=== PATIENT | female | born 1935 | race Caucasian/White ===

== ENCOUNTER 2018-07-10 18:56 | Inpatient (IN) ==
[2018-07-10] MEDS ORDERED: MOTRIN ONE (19:11)
[2018-07-10] MEDS ORDERED: MOTRIN PO ONE (19:12)
[2018-07-10] MEDS ORDERED: DUONEB (A & A) INH ONE ×2 (19:45→22:15)
[2018-07-10] MEDS ORDERED: NS 1,000 ML IV ONE (19:49)
[2018-07-10] MEDS ORDERED: TYLENOL PO ONE (19:50)
[2018-07-10 19:53] LABS: INFLUENZA A POSITIVE (NEGATIVE); INFLUENZA B NEGATIVE (NEGATIVE)
--- NOTE | 2018-07-10 20:25 | Diag Imaging Result Doc PS360 ---
EXAM: CHEST-2 VIEWS HISTORY: cough, low O2 sat. TECHNIQUE: Chest two views COMPARISON: 10/18/2013 FINDINGS: The lungs are well expanded. The heart is not enlarged. The vessels are not distended. There are no infiltrates. No pleural effusions. IMPRESSION: No pneumonia. Electronically signed by Parrish Chopra 07/10/2018 8:23 PM
[2018-07-10] MEDS ORDERED: TAMIFLU PO SCH (21:00)
[2018-07-10 21:23] LABS: BASO# 0.01 X1000 (0.0-0.2); BASO% 0.2 % (0.0-0.8); EOS# 0.03 X1000 (0.0-0.7); EOS% 0.5 % (0.0-10.0); HEMATOCRIT 43.3 % (37.0-47.0); IMM GRAN# 0.01 X1000 (0.0-0.04); IMM GRAN% 0.2 % (0.0-0.5); LYMPH# 1.23 X1000 (1.2-3.4); LYMPH% 20.2 % (20.5-51.1); MCH 31.7 PG (27-31); MCHC 32.3 g/dL (33-37); MONO# 0.67 X1000 (0.11-0.59); MPV 9.8 FL (7.4-10.4); NEUT# 4.14 X1000 (1.4-6.5); NEUT% 67.9 % (42.2-75.2); PLT 182 X1000 (130-400); RBC 4.42 XMIL (4.2-5.4); RDW 12.9 % (11.5-14.5); WBC 6.09 X1000 (4.8-10.8)
[2018-07-10 21:48] LABS: AGAP 16; ALBUMIN 3.9 g/dL (3.5-5.0); ALKALINE PHOSPHATASE 58 U/L (32-104); BUN 9 mg/dL (8-22); CALCIUM 9.1 mg/dL (8.8-10.2); CHLORIDE 98 mmol/L (98-107); COSMO 274; CREATININE 0.7 mg/dL (0.5-0.9); ESTIMATED GFR > 60; GLUCOSE 117 mg/dL (70-104); GOT 21 U/L (10-30); GPT 15 U/L (10-36); LIPASE 18 U/L (13-60); MAGNESIUM 2.2 mg/dL (1.5-2.7); POTASSIUM 3.9 mmol/L (3.5-5.1); SODIUM 137 mmol/L (136-145); TCO2 24 mmol/L (25-35); TOTAL PROTEIN 7.1 g/dL (6.3-8.3)
[2018-07-10 22:09] LABS: BILIRUBIN URINE NEGATIVE (NEGATIVE); BLOOD URINE NEGATIVE (NEGATIVE); CLARITY CLEAR (CLEAR); COLOR YELLOW; GLUCOSE URINE NEGATIVE (NEGATIVE); KETONE URINE 3+(Large) mg/dL (NEGATIVE); LEUKOCYTES URINE NEGATIVE (NEGATIVE); NITRITE URINE NEGATIVE (NEGATIVE); PROTEIN URINE TRACE mg/dL (NEGATIVE); SP GRAVITY URINE 1.015; UROBILINOGEN URINE NORMAL
[2018-07-10 22:12] LABS: URINE SOURCE CATH
[2018-07-10 22:13] LABS: URINE BACTERIA NEGATIVE /HFP; URINE CAST NONE SEEN /LPF; URINE CRYSTAL NONE SEEN /HPF; URINE EPITHELIAL CELLS <10 /HPF (<10); URINE RBC <10 /HPF (<10); URINE WBC <10 /HPF (<10); URINE YEAST NONE SEEN /HPF
--- NOTE | 2018-07-10 22:15 | PROVIDER DOCUMENTATION ---
This chart was entered by Eugenia Kulkarni Scribe, acting as scribe for Dea Solares MD. HPI-General Adult - General Chief Complaint: Fever Stated Complaint: chills, cough,fever Time Seen by Provider: 07/10/18 18:40 Source: patient Allergies/Adverse Reactions: Patient Allergies Allergy/AdvReac Type Severity Reaction Status Date / Time No Known Allergies Allergy Verified 07/10/18 19:03 Home Medications: Home Medication List Medication Instructions Recorded Confirmed Last Taken Type Multivitamin with Minerals 1 each PO DAILY 10/18/13 03/04/18 10/18/13 History [Multiple Vitamin] Omeprazole [Prilosec] 20 mg PO DAILY 10/18/13 03/04/18 10/18/13 History Trazodone [Desyrel] 100 mg PO HS 03/04/18 03/04/18 Unknown History - History of Present Illness -Gen Adult Nature of Presenting Problems: pt is a 83 yr old female presenting via EMS with 1 day complaint of fever, chills, nausea, vomiting, diarrhea, body aches, fatigue, cough and nasal congestion Location of Pain/Injury: reports: generalized Pain Radiation: reports: no radiation Quality of Pain: reports: aching Severity: reports: mild Onset/Duration: reports: 24 hours ago Timing: reports: still present Context/Activities at Onset: reports: light activity Modifying Factors: improves with: other medication (zofran with relief) Associated Symptoms: reports: cough, fatigue, fever/chills, headaches, malaise, muscle aches, sinus congestion/drainage, nausea, vomiting, weakness. denies: chest pain, EENT symptoms, shortness of breath Similar Symptoms Previously?: No Recently seen or treated by another doctor?: No Review of Systems - Adult - REVIEW OF SYSTEMS - ADULT Constitutional: reports: chills, fever, fatique Eyes: denies: discharge, redness Ears, Nose, Mouth & Throat: reports: sinus problem. denies: ear pain, throat pain Cardiovascular: denies: chest pain, palpitations, syncope Respiratory: reports: cough. denies: shortness of breath, wheezing Gastrointestinal: reports: diarrhea, nausea, vomiting. denies: abdominal pain Genitourinary: reports: no symptoms reported Musculoskeletal: reports: muscle aches Integumentary: reports: no symptoms reported Neurological: denies: dizziness/vertigo, headache/migraines, syncope Psychiatric: reports: no symptoms reported Endocrine: reports: no symptoms reported Hematologic/Lymphatic: reports: no symptoms reported Allergic/Immunologic: reports: no symptoms reported All Other Systems: Reviewed and Negative Past History - Adult - PAST MEDICAL HISTORY-ADULT Review of Records: reports: Old Records Reviewed, Nursing Assessment Review, Medications Reviewed, Social history reviewed & non-contributory. Major Childhood Illnesses: reports: denies history Cardiovascular: reports: HTN, hyperlipidemia Respiratory: reports: sleep apnea Gastrointestinal: reports: GERD Obstetrical/Gynecological: reports: denies history Genitourinary: reports: denies history Musculoskeletal: reports: arthritis Neurological: reports: dementia Psychiatric: reports: depression Endocrine/Immune: reports: denies history Other Conditions: reports: denies history - PRIOR SURGERIES/PROCEDURES Surgical/Procedure History: reports: reviewed, not pertinent - IMMUNIZATION STATUS Childhood Immunizations: See Nurse Assessment Flu Vaccine: See Nurse Assessment - FAMILY HISTORY Family History: reviewed, not pertinent - SOCIAL HISTORY Living Situation: family Physical Exam-General - PHYSICAL EXAM-ADULT Initial Vital Signs Reviewed: Yes - CONSTITUTIONAL General Appearance: appears well, alert, no apparent distress - EYES Eyes: PERRL/EOMI - HEAD, EARS, NOSE, MOUTH & THROAT HENMT: normocephalic/atraumatic, moist mucous membranes, normal ENT inspection, TMs normal - NECK Neck: non-tender, full range of motion, supple - RESPIRATORY Respiratory: chest non-tender, no pleuratic chest pain, no respiratory distress , no accessory muscle use, crackles - CARDIOVASCULAR Cardiovascular: normal peripheral pulses, regular rate, rhythm, no edema, no gallop, no JVD - GASTROINTESTINAL (ABDOMEN) Abdominal Exam: normal bowel sounds, non tender, soft - MUSCULOSKELETAL Back Exam: normal inspection Extremity: normal range of motion, non-tender, normal gait, normal inspection - SKIN Integumentary: normal color, normal turgor, warm/dry - NEUROLOGIC Neurologic: grossly normal - PSYCHIATRIC Psych/Mental Status: normal mood/affect, normal thought content, normal thought process, oriented x 3 Progress - PLAN OF CARE/RESULTS Progress/Plan/Lab Results: Vital Signs - 8 hr 07/10/18 18:56 Temperature 102.8 F H Pulse Rate 90 Respiratory Rate 20 Blood Pressure 146/88 O2 Sat by Pulse Oximetry 89 L Laboratory Results - last 24 hr 07/10/18 18:47 Group A Strep Rapid NEGATIVE Orders Category Date Time Status CHEST-2 VIEWS [RAD] Stat Exams 07/10/18 19:29 Ordered AMYLASE [CHEM] Stat Lab 07/10/18 19:48 Ordered CBC WITH ELECTRONIC DIFF [HEME] Stat Lab 07/10/18 19:48 Uncollected COMPREHENSIVE METABOLIC PANEL [CHEM] Stat Lab 07/10/18 19:[address] Stat Lab 07/10/18 19:44 Ordered Flu [INFLUENZA SCREEN PL] Stat Lab 07/10/18 18:47 Received LIPASE [CHEM] Stat Lab 07/10/18 19:48 Uncollected MAGNESIUM [CHEM] Stat Lab 07/10/18 19:48 Uncollected strep [DIRECT STREP PL] Stat Lab 07/10/18 18:47 Completed Albuterol 2.5MG/Ipratrop 0.5MG [Duoneb (A & A)] Med 07/10/18 19:45 Discontinued 3 ml INH NOW ONE Ibuprofen [Motrin] Med 07/10/18 19:11 Discontinued 600 mg .ROUTE .STK-MED ONE Ibuprofen [Motrin] Med 07/10/18 19:12 Discontinued 600 mg PO NOW ONE Ns 1000 ml IV Bolus X1 Med 07/10/18 19:49 Ordered 0.9% Sodium Chloride Inj [Ns] 1,000 ml IV 999 mls/hr Aerosol Treatments Routine Oth 07/10/18 19:45 Active Aerosol Treatments Stat Oth 07/10/18 19:45 Active Result Diagrams: 07/10/18 21:05 07/10/18 21:05 - REASSESSMENT Reassessment #1 Time Reassessed: 22:14 Status: other (PATIENT DESAT DESPITE BREATHING TREAMTNET; WILL ADMIT PATIENT FOR OBSERVATION. SPOKE TO HOSPITALIST WHO HAS ACCEPTED THE PATIENT.) - XRAY 1 XRAY Study: Chest ([facility] [address], [address], [place] [address] Department of Imaging Patient: BIGG CALABRESE LOGGINSADM Date: 07/10/18MR#: [id number] : 1935DM Status: REG [facility]#: [id number] Age /Sex: 83/FRoom/Bed: Loc: P.ED Ordering Physician: Dea Solares MD Family Physician: None,PCP Reason for Procedure: cough, low O2 sat. Signed EXAM: CHEST-2 VIEWS HISTORY: cough, low O2 sat. TECHNIQUE: Chest two views COMPARISON: 10/18/2013 FINDINGS: The lungs are well expanded. The heart is not enlarged. The vessels are not distended. There are no infiltrates. No pleural effusions. IMPRESSION: No pneumonia. Electronically signed by Parrish Chopra 07/10/2018 8:23 PM 07/10/182022 Interpreting Physician: Parrish Chopra MD Dictated Date/Time: 07/10/182021 cc: Dea Solares MD; None,PCP) Departure - Departure Date of Disposition Decision: 07/10/18 Time of Disposition Decision: 22:14 DIAGNOSIS: Influenza A, Oxygen desaturation Disposition: ADMITTED INPATIENT 09 Certified Medical Emergency: Emergent Condition: Fair Referrals and Follow-Ups: None,PCP [Primary Care Provider] - - Critical Care Note This patient required my direct & personal management of CC.: No Attestation - Physician/ YOBANI Attestation Patient care was provided by Advanced Practice Provider:: No The physician spent face to face time with patient:: Yes Advanced Practice Provider documentation review:: Supervising physician onsite and consulted in the evaluation and care of this patient. The physician did have a face to face encounter with the patient. This chart was documented by the indicated scribe, (Eugenia Kulkarni, Saji) and accurately reflects the services I performed and decisions made by me, Dea Solares MD, as attested by the provider's signature.
[2018-07-10] MEDS ORDERED: TAMIFLU ONE (22:26)
[2018-07-10] MEDS: TAMIFLU PO SCH (22:30)
[2018-07-11] MEDS ORDERED: ZOFRAN IV PRN (06:25)
[2018-07-11] MEDS: ROCEPHIN 1 GM in NS 50 ML IV SCH (06:54)
[2018-07-11] MEDS: TAMIFLU PO SCH ×2 (10:32→20:35)
[2018-07-11] MEDS: DUONEB (A & A) INH PRN (18:33)
--- NOTE | 2018-07-11 18:50 | HISTORY AND PHYSICAL ---
CHIEF COMPLAINT: Nausea, vomiting, diarrhea, body aches, fever. HISTORY OF PRESENT ILLNESS: This is an 83-year-old female who presented to the emergency room complaining of 3 days of fever, chills, nausea, vomiting, diarrhea with fatigue and a nonproductive cough. She did state that Zofran helped nausea at the beginning, but over the last 24 hours, it has not helped. She denied any chest pain, palpitations. PAST MEDICAL HISTORY: Hypertension, hyperlipidemia, chronic arthritis, obstructive sleep apnea, gastroesophageal reflux disease. PAST SURGICAL HISTORY: Bilateral cataract surgery. SOCIAL HISTORY: She denies alcohol, tobacco, or illicit drug use. ALLERGIES: No known drug allergies. HOME MEDICATIONS: A list will be obtained by the nursing staff once reviewed. We will restart as appropriate. REVIEW OF SYSTEMS: Discussed with the patient with pertinent positives stated in the HPI. She denies any syncope, dizziness, chest pain, palpitations, any productive cough, recent weight loss or weight gain, any black or bloody vomitus or stools, any hematuria, dysuria, frequency, urgency. PHYSICAL EXAMINATION: GENERAL: This is an 83-year-old female who is lying in the bed in no distress. VITAL SIGNS: Blood pressure is 135/58 with a heart rate of 84, respirations are 16, temperature is a 100. Room air saturations are 93 to 98 percent. HEENT: Head is normocephalic, atraumatic. Mucous membranes are moist. NECK: Supple with trachea midline. CARDIOVASCULAR: Regular rate and rhythm. S1 and S2 are appreciated. Peripheral pulses are palpable x4 extremities. PULMONARY: Breath sounds are clear with no increased work of breathing noted. GASTROINTESTINAL: Abdomen is soft, nontender, nondistended. Bowel sounds in all 4 quadrants. GENITOURINARY: She has no CVAT nor suprapubic tenderness. SKIN: Warm and dry. NEUROLOGIC: She is alert and oriented x3. LABORATORY DATA: WBC is 6 with hemoglobin 14, hematocrit 43.3, and platelets of 182,000. Sodium is 137, potassium 3.9, BUN 9, creatinine 0.7 with a glucose of 117. Amylase is 38, lipase 18. Urinalysis is essentially negative. Influenza A is positive. Influenza B and group A rapid strep are negative. Throat culture is pending. Chest x-ray reveals no pneumonia. Lungs are well expanded. Heart is not enlarged. Vessels are not distended. There are no infiltrates. No pleural effusions. ASSESSMENT AND PLAN: 1. Influenza A. 2. Acute hypoxic respiratory failure. 3. Fever. 4. Nausea and vomiting. 5. Hypertension. 6. Gastroesophageal reflux disease. 7. Obstructive sleep apnea. PLAN: Patient has been admitted to the medical/surgical floor and we will place her on telemetry. We will give supplemental oxygen as needed. Identify her home medications and continue these as appropriate. We will continue Tamiflu as started in the emergency room. Give DuoNeb q.4 hours p.r.n. wheezing. We will repeat a CBC and CMP in the morning. We will use Tylenol for fever. Further treatments pending hospital course. Dictated by ALEC Salcedo for Kev Roberto MD This chart was documented by, ALEC Salcedo and accurately reflects the services performed, treatment plan and medical decisions as attested by the providers signature Kev Roberto MD. cc: ALEC Salcedo MD
[2018-07-11] MEDS: DESYREL PO SCH (20:34)
[2018-07-11] MEDS: TYLENOL PO PRN (20:35)
--- NOTE | 2018-07-12 01:30 | HISTORY AND PHYSICAL ---
ADDENDUM: Patient seen and examined by myself. Full note dictated and discussed with nurse practitioner. Patient presented to the ER with a 1 to 2 day history of fever, chills, cough, nausea, vomiting, muscle aches, and was diagnosed with flu B positive. She also was noted to have hypoxemia which is a new finding for her as she is not on oxygen at home. We will admit her to the hospital, place her on Tamiflu. We will start Rocephin given her hypoxemia, use breathing treatments as needed and we will follow. cc: Kev Roberto MD
[2018-07-12] MEDS: PRILOSEC PO SCH ×2 (05:43→06:26)
[2018-07-12] MEDS: ROCEPHIN 1 GM in NS 50 ML IV SCH (05:45)
[2018-07-12 06:40] LABS: HEMATOCRIT 43.1 % (37.0-47.0); MCH 31.7 PG (27-31); MCHC 32.5 g/dL (33-37); MCV 97.5 FL (81-99); MPV 9.6 FL (7.4-10.4); RBC 4.42 XMIL (4.2-5.4); RDW 12.9 % (11.5-14.5); WBC 4.1 X1000 (4.8-10.8)
[2018-07-12 07:15] LABS: AGAP 13; ALBUMIN 3.7 g/dL (3.5-5.0); ALKALINE PHOSPHATASE 54 U/L (32-104); BUN 10 mg/dL (8-22); CALCIUM 9.1 mg/dL (8.8-10.2); CHLORIDE 103 mmol/L (98-107); COSMO 282; CREATININE 0.7 mg/dL (0.5-0.9); ESTIMATED GFR > 60; GLUCOSE 89 mg/dL (70-104); GOT 23 U/L (10-30); GPT 14 U/L (10-36); POTASSIUM 3.9 mmol/L (3.5-5.1); SODIUM 142 mmol/L (136-145); TCO2 26 mmol/L (25-35); TOTAL PROTEIN 6.9 g/dL (6.3-8.3)
[2018-07-12] MEDS: DUONEB (A & A) INH PRN ×3 (08:09→19:11)
[2018-07-12] MEDS: TAMIFLU PO SCH ×2 (09:38→20:36)
[2018-07-12] MEDS: CELEBREX PO SCH (09:38)
[2018-07-12] MEDS: TYLENOL PO PRN (09:46)
[2018-07-12] MEDS: DESYREL PO SCH (20:36)
--- NOTE | 2018-07-13 00:53 | PROGRESS NOTE ---
DATE: 07/12/2018 SUBJECTIVE: Patient notes that she is starting to feel better. Still having lots of cough, congestion, but overall is improving. Still having difficulty getting out of bed. PHYSICAL EXAMINATION: Vital Signs: Temperature 99 degrees, pulse 62, respiratory 20, BP 148/76. General: Patient is awake, alert, very pleasant to talk with. HEENT: Normocephalic. Neck: Supple. Cardiovascular: Regular rate. Chest: Clear and nonlabored. Abdomen: Soft. Extremities: Moves all extremities. ASSESSMENT: 1. Influenza type A. 2. Acute hypoxic respiratory failure. Patient has still continued to require oxygen. 3. Fever. 4. Hypertension. 5. Obstructive sleep apnea. PLAN: We will continue Tamiflu. Continue Rocephin. Continue physical therapy and breathing treatments. Hopefully she can transition off of oxygen and be discharged home over the next day or 2. We will continue Tamiflu for 5 days. cc: Kev Roberto MD
[2018-07-13] MEDS: DUONEB (A & A) INH PRN (03:07)
[2018-07-13] MEDS: ROCEPHIN 1 GM in NS 50 ML IV SCH (06:08)
[2018-07-13] MEDS: PRILOSEC PO SCH (06:08)
[2018-07-13] MEDS: CELEBREX PO SCH (09:11)
[2018-07-13] MEDS: TAMIFLU PO SCH (09:11)
[2018-07-13 13:21] VITALS: BP 115/72
--- NOTE | 2018-07-15 01:34 | DISCHARGE SUMMARY ---
ADMISSION DATE: 07/10/2018 DISCHARGE DATE: 07/13/2018 DISCHARGE DIAGNOSIS: 1. Influenza A positive. 2. Acute hypoxic respiratory failure, resolved. 3. Fever, resolved. 4. Hypertension. 5. Chronic reflux. 6. Obstructive sleep apnea. CONSULTATIONS: None. PROCEDURES: None. BRIEF HOSPITAL COURSE: Patient is an 83-year-old female who presented to the ER with cough, congestion, shortness of breath. Was subsequently noted to be hypoxic. Was placed on oxygen as well as Tamiflu. Thankfully, on discharge she is in no distress. She is able to ambulate. With ambulation, her oxygen levels have remained elevated and therefore she will be discharged home. DISPOSITION: Patient will be discharged home. She will continue Tamiflu. Does not require oxygen currently. She will continue her other home medications without any changes. Greater than 30 minutes was spent in total care. cc: Kev Roberto MD
== END 2018-07-13 16:00 | disposition home or self-care (01) | DRG 193 ==
LOC: P.ED 18:56 → P.EDIPHOLD 18:57 → P.MEDSURG 07-11 04:49
PROVIDERS: ATTEND Family Medicine
CPT/HCPCS: 71020; 71046; 80053; 81001; 82150; 83690; 83735; 85025; 85027; 87081; 87275; 87276; 87430; 87804; 94640; 94761; 96360; 97163; 99285; A9270; J0696; J7030